=== PATIENT | male | born 1960 | race Caucasian/White ===

== ENCOUNTER → 2016-04-04 08:20 | Day surgery (SDC) | payer OTHER ==
[~2016-04-04 08:20] MED LIST: Buffered Lidocaine 1% SYR 3ML* 3 ML/SYR SYRINGE INTRADERM ONE; Bupivacaine 0.5% SDV PF* 30 ML VIAL ONE; Dexamethasone IV* 4 MG/ML 1 ML (4 MG) ONE; Dexamethasone TAB* 4 MG PO ONE; EPHEDrine (Pressors)* 50 MG/ML VIAL ONE; Famotidine IV* 10 MG/ML 2 ML (20 mg) IV ONE; Famotidine IV* 10 MG/ML 2 ML (20 mg) ONE; HYDROmorphone INJ* 1 MG/ML CARPUJECT SYRINGE ONE; KETAMINE HCL* 50 MG/ML 10 ML VIAL ONE; Ketorolac INJ* 30 MG/ML 1 ML VIAL ONE; Levalbuterol 0.63MG/3ML NEB INH PRN; Lidocaine 2% PF * 5 ML VIAL ONE; Midazolam* 1 MG/ML 2 ML VIAL (2 MG) ONE; PROCHLORPERAZINE INJ 5 MG/ML 2 ML VIAL IV PRN; Propofol* 10 MG/ML 20 ML BTL IV PUSH ONE; Succinylcholine* 20 MG/ML 10 ML VIAL ONE; ceFAZolin 2 GM PREMIX (*) 2 GM/50 ML BAG IVPB ONE; fentaNYL* 50 MCG/ML 2 ML VIAL (100 MCG VIAL) ONE; fentaNYL* 50 MCG/ML 5 ML VIAL (250 MCG VIAL) ONE; oxyCODONE/Acetamin 5/325 MG* TAB ONE
[2016-04-04] MEDS: HYDROmorphone INJ* 1 MG/ML CARPUJECT SYRINGE IV PRN ×5 (12:50→13:20)
[2016-04-04] MEDS: fentaNYL* 50 MCG/ML 2 ML VIAL (100 MCG VIAL) IV PRN ×4 (12:53→13:32)
[2016-04-04] MEDS: oxyCODONE/Acetamin 5/325 MG* TAB PO PRN ×2 (12:53→13:04)
[2016-04-04 13:31] VITALS: BP 167/93
--- NOTE | 2016-04-05 12:04 | OP ---
DATE OF OPERATION: 04/04/16 [facility] DATE OF : 62 SURGEON: Marco Nails MD SCALLOP CUTTER: DEANNA Vitale ANESTHESIOLOGIST: Antonio Rushing MD ANESTHESIA: General PRE-OP DIAGNOSIS: Left distal Achilles tendinosis. POST-OP DIAGNOSIS: Left distal Achilles tendinosis. OPERATIVE PROCEDURE: Advancement left Achilles tendon with posterior calcanectomy. DESCRIPTION OF PROCEDURE: The patient was taken to the operating room, where we extended the posterior longitudinal incision. We dissected circumferentially at the distal insertion of the Achilles and reflected this away from the posterior calcaneus. We then re-cut the calcaneus with the microsagittal saw giving a fresh surface. Proximally, we performed a 6 cm VY lengthening in the gastroc tendon, bringing this distally gave us 2.5 cm in length. We repaired the VY with 0 Vicryl sutures. We then debrided the distal Achilles back to good fresh tendon, attaching this to the calcaneus firmly with #1 Ti-Con sutures taken through the bone. Two pairs of sutures were provided. We then irrigated thoroughly closing the subcu tissue with 2-0 Vicryl and jayden for the skin, and a compression dressing and plaster splint applied. [id number]/[facility] #: [id number] MTDD
== END | disposition home or self-care (01) ==
LOC: OR 08:20
PROVIDERS: ATTEND Orthopaedic Surgery
DX: M76.62 Achilles tendinitis, left leg (principal); F17.210 Nicotine dependence, cigarettes, uncomplicated
CPT/HCPCS: 88304; 88311; A9270-GY; C1776; J0330; J0690; J1100; J1170; J1885; J2250; J2704; J3010

== ENCOUNTER 2016-10-04 19:03 | Emergency (ER) | payer OTHER ==
[2016-10-04] MEDS ORDERED: Lidocaine 2% VISCOUS* 15 ML UDC PO ONE (19:10)
--- NOTE | 2016-10-04 19:10 | UC ---
Ear Complaint HPI - HPI Summary HPI Summary: 55 YEAR OLD MALE PRESENTS WITH SEVERE LEFT EAR PAIN. - History of Current Complaint Stated Complaint: LEFT EAR Time Seen by Provider: 10/04/16 19:08 Hx Obtained From: Patient Onset/Duration: Sudden Onset Severity Initially: Moderate Severity Currently: Moderate Pain Scale Used: 0-10 Numeric - 7 Aggravating Factors: Nothing Alleviating Factors: Nothing - Allergies/Home Medications Allergies/Adverse Reactions: Allergies Allergy/AdvReac Type Severity Reaction Status Date / Time Sulfa Drugs AdvReac Intermediate GI Upset Verified 10/04/16 19:15 Home Medications: Home Medications Simvastatin TAB(NF) [Zocor(NF)] 40 mg PO BEDTIME 10/04/16 [History Confirmed ] oxyCODONE/Acetamin 5/325 MG* [Percocet 5/325 TAB*] 1 tab TID 10/04/16 [History Confirmed 10/04/16] PMH/Surg Hx/FS Hx/Imm Hx Previously Healthy: Yes - Surgical History Surgical History: Yes Surgery Procedure, Year, and Place: hernia 2003. tonsillectomy as a child. lt heel spurs removed 2015 left foot. LT KNEE SCOPE approx 2009 - Family History Known Family History: Positive: None - Social History Alcohol Use: Occasionally Alcohol Amount: 2-3 beers at a time Substance Use Type: None Smoking Status (MU): Current Some Day Smoker Type: Cigarettes Amount Used/How Often: 10 cigg/day Length of Time of Smoking/Using Tobacco: 30 YRS Have You Smoked in the Last Year: Yes Household Exposure Type: Cigarettes - Immunization History Most Recent Influenza Vaccination: no Review of Systems Constitutional: Negative Skin: Negative Eyes: Negative ENT: Ear Ache Respiratory: Negative Cardiovascular: Negative Gastrointestinal: Negative Genitourinary: Negative Motor: Negative Neurovascular: Negative Musculoskeletal: Negative Neurological: Negative Psychological: Negative All Other Systems Reviewed And Are Negative: Yes Physical Exam Triage Information Reviewed: Yes Vital Signs Reviewed: Yes Eye Exam: Normal ENT: Positive: TM bulging, TM red - LEFT EAR RETRACTING, Other: Dental Exam: Normal Neck exam: Normal Neck: Positive: 1 Respiratory Exam: Normal Cardiovascular Exam: Normal Abdominal Exam: Normal Musculoskeletal Exam: Normal Neurological Exam: Normal Psychological Exam: Normal Skin Exam: Normal Ear Complaint Course/Dx - Differential Dx/Diagnosis Provider Diagnoses: LEFT EAR AOM. LEFT EAR OTITIS EXTERNA Discharge - Discharge Plan Condition: Stable Disposition: HOME Prescriptions: Amoxicillin/Clavulanate TAB* [Augmentin TAB 875*] 875 mg PO BID #20 tab Methylprednisolone [Medrol Dosepak 4 MG*] 4 mg PO .SEE BLAS INSTRUCTION #21 tab Neomyc/Polym/HC 1% OTIC SUSP* [Cortisporin Otic Susp 1%*] 4 drop LEFT EAR TID # 1 btl Patient Education Materials: Otitis Externa (ED), Otitis Media (ED) Referrals: Jake Stein [Primary Care Provider] -
[2016-10-04 19:15] VITALS: BP 122/75
== END 2016-10-04 19:55 | disposition home or self-care (01) ==
LOC: UCCORT 19:03
DX: H66.92 Otitis media, unspecified, left ear (principal); H60.92 Unspecified otitis externa, left ear; Z88.2 Allergy status to sulfonamides; Z72.0 Tobacco use
CPT/HCPCS: 99212; G0463